=== PATIENT | male | born 1960 | race Caucasian/White ===

== ENCOUNTER 2017-02-17 14:02 | Emergency (ER) | payer BC ==
[2017-02-17] MEDS ORDERED: Azithromycin 250 MG Tab ONE (14:20)
[2017-02-17] MEDS ORDERED: Oseltamivir 75 MG Cap ONE ×2 (14:20→15:35)
--- NOTE | 2017-02-17 14:45 | EDM.PDOC ---
ED HPI GENERAL MEDICAL PROBLEM - General Chief Complaint: Respiratory Problem Stated Complaint: COUGH, CONGESTION Time Seen by Provider: 02/17/17 14:10 Source of Information: Reports: Patient History Limitations: Reports: No Limitations - History of Present Illness INITIAL COMMENTS - FREE TEXT/NARRATIVE: Pt claims that he has been having nasal congestion and fever for past 2 days. fever has been high and is asso with chills. he has been having severe body aches and joint pains. Also his cough has got worse over the past 3 days. No nausea or vomiting. No SOB or wheezing. Has been running fever. he is from [place] and has not had his flu shot this year. Duration: Day(s): (3) Severity: Moderate Improves with: Reports: None Worsens with: Reports: None Associated Symptoms: Reports: Cough, Fever/Chills. Denies: Confusion, Chest Pain, Nausea/Vomiting, Rash, Seizure, Shortness of Breath, Syncope, Weakness - Related Data Allergies Allergy/AdvReac Type Severity Reaction Status Date / Time Penicillins Allergy Cannot Verified 02/17/17 14:26 Remember Sulfa (Sulfonamide Allergy Cannot Verified 02/17/17 14:26 Antibiotics) Remember ED ROS GENERAL - Review of Systems Review Of Systems: See Below Constitutional: Reports: Fever, Chills, Weakness HEENT: Reports: Rhinitis. Denies: Throat Pain, Throat Swelling Respiratory: Reports: Cough, Sputum. Denies: Shortness of Breath, Wheezing Cardiovascular: Denies: Chest Pain, Lightheadedness GI/Abdominal: Denies: Abdominal Pain, Nausea, Vomiting Musculoskeletal: Reports: Joint Pain, Muscle Pain. Denies: Joint Swelling, Muscle Stiffness Skin: Denies: Bruising, Pruritis, Rash ED EXAM, GENERAL - Physical Exam Exam: See Below Exam Limited By: No Limitations General Appearance: Alert, WD/WN, No Apparent Distress Eye Exam: Bilateral Eye: EOMI, PERRL Ears: Normal External Exam, Normal Canal, Hearing Grossly Normal, Normal TMs Ear Exam: Bilateral Ear: Auricle Normal, Canal Normal, TM normal Nose: Normal Inspection (nasal discharge), Normal Mucosa, No Blood, Nasal Drainage Throat/Mouth: Normal Inspection, Normal Lips, Normal Teeth, Normal Gums, Normal Oropharynx, Normal Voice, No Airway Compromise Head: Atraumatic, Normocephalic Neck: Normal Inspection, Supple, Non-Tender, Full Range of Motion Respiratory/Chest: Normal Breath Sounds, Crackles (expiratory crackles in the left base) Cardiovascular: Normal Peripheral Pulses, Regular Rate, Rhythm, No Edema, No Gallop, No JVD, No Murmur, No Rub Extremities: Normal Inspection, Normal Range of Motion, Non-Tender, Normal Capillary Refill, No Pedal Edema Course - Vital Signs Text/Narrative:: Pt's white count is 4.8 with normal hemoglobin. his chest X-ray does show infiltrates in left lower lobe. His flu test is positive for influenza A This does appear like viral pneumonia. I have advised rest and hydration. fever control with Tylenol 650mg every 6 hrs. Staretd on tamiflu 75 mg BID for 5 days Will start him on ZPAK for his pneumonia empirically. Steam inhalations and deep breathing exercises. Robutussin Dm 1-2 tsp 4 times daily. Cough will gets worse before getting better. If her has high grade fever, lethargy, shortness of breath, wheezing or chest tightness, advised to return to emergency room. no work and air borne precaution discussed.Other montanez followup in clinic on Sunday. Last Recorded V/S: Last Vital Signs Temp 100.8 F H 02/17/17 14:12 Pulse 112 H 02/17/17 14:12 Resp 22 H 02/17/17 14:12 BP 141/74 H 02/17/17 14:12 Pulse Ox 100 02/17/17 14:12 - Orders/Labs/Meds Orders: Active Orders 24 hr Category Date Time Status Chest 2V [CR] Stat Exams 02/17/17 14:21 Taken Labs: Laboratory Tests 02/17/17 Range/Units 14:30 WBC 4.8 (4.0-11.0) K/uL RBC 3.82 L (4.50-6.50) M/uL Hgb 12.3 L (13.0-18.0) g/dL Hct 35.8 L (40.0-54.0) % MCV 94 (76-96) fL MCH 32.2 H (27.0-32.0) pg MCHC 34.4 (31.0-35.0) g/dL RDW 12.4 (11.0-16.0) % Plt Count 207 (150-400) K/uL MPV 9.2 (6.0-10.0) fL Neut % (Auto) 69.5 (45.0-70.0) % Lymph % (Auto) 10.2 L (20.0-40.0) % [place] % (Auto) 17.2 H (3.0-10.0) % Eos % (Auto) 2.7 (1.0-5.0) % Baso % (Auto) 0.4 (0.0-0.5) % Neut # (Auto) 3.35 (2.00-7.50) K/uL Lymph # (Auto) 0.49 L (1.50-4.00) K/uL [place] # (Auto) 0.83 H (0.20-0.80) K/uL Eos # (Auto) 0.13 (0.04-0.40) K/uL Baso # (Auto) 0.02 (0.02-0.10) K/uL Departure - Departure Time of Disposition: 15:45 Disposition: Home, Self-Care 01 Condition: Fair Clinical Impression: Influenza A, Pneumonia - Discharge Information Instructions: Cough, Adult, [id number], Viral Respiratory Infection, Easy-To- Read, Influenza Tests, Community-Acquired Pneumonia, Adult Referrals: PCP,None [Primary Care Provider] - Forms: ED Department Discharge Additional Instructions: Pt's white count is 4.8 with normal hemoglobin. his chest X-ray does show infiltrates in left lower lobe. His flu test is positive for influenza A This does appear like viral pneumonia. I have advised rest and hydration. fever control with Tylenol 650mg every 6 hrs. Staretd on tamiflu 75 mg BID for 5 days Will start him on ZPAK for his pneumonia empirically. Steam inhalations and deep breathing exercises. Robutussin Dm 1-2 tsp 4 times daily. Cough will gets worse before getting better. If her has high grade fever, lethargy, shortness of breath, wheezing or chest tightness, advised to return to emergency room. no work and air borne precaution discussed.Other montanez followup in clinic on Sunday. - Problem List & Annotations (1) Influenza A SNOMED Code(s): 906545009 Code(s): J10.1 - FLU DUE TO OTH IDENT INFLUENZA VIRUS W OTH RESP MANIFEST Status: Acute Current Visit: Yes (2) Pneumonia SNOMED Code(s): 198093473 Code(s): J18.9 - PNEUMONIA, UNSPECIFIED ORGANISM Status: Acute Current Visit: Yes Qualifiers: Pneumonia type: due to influenza A virus - Problem List Review Problem List Initiated/Reviewed/Updated: Yes - My Orders Last 24 Hours: My Active Orders 02/17/17 14:21 Chest 2V [CR] Stat - Assessment/Plan Last 24 Hours: My Active Orders 02/17/17 14:21 Chest 2V [CR] Stat Assessment:: influenza A with LLL pneumonia Plan: Pt's white count is 4.8 with normal hemoglobin. his chest X-ray does show infiltrates in left lower lobe. His flu test is positive for influenza A This does appear like viral pneumonia. I have advised rest and hydration. fever control with Tylenol 650mg every 6 hrs. Staretd on tamiflu 75 mg BID for 5 days Will start him on ZPAK for his pneumonia empirically. Steam inhalations and deep breathing exercises. Robutussin Dm 1-2 tsp 4 times daily. Cough will gets worse before getting better. If her has high grade fever, lethargy, shortness of breath, wheezing or chest tightness, advised to return to emergency room. no work and air borne precaution discussed.Other montanez followup in clinic on Sunday.
--- NOTE | 2017-02-19 02:13 | CR ---
PA AND LATERAL CHEST. 02/17/17 No priors. The heart size is normal. The lungs are clear. No pneumothorax. No pleural effusions. No areas of consolidation. IMPRESSION: No evidence of acute intrathoracic disease. [id number] MTDD
== END 2017-02-17 16:00 | disposition home or self-care (01) ==
LOC: LB.ED 14:02
DX: J18.9 Pneumonia, unspecified organism (principal); J10.1 Influenza due to other identified influenza virus with other respiratory manifestations; Z88.0 Allergy status to penicillin; Z88.2 Allergy status to sulfonamides
CPT/HCPCS: 36415; 71046; 85025; 87804; 99283; A9270

== ENCOUNTER 2017-03-03 13:38 | Emergency (ER) | payer BC ==
[2017-03-03] MEDS ORDERED: Nitroglycerin 0.4 MG Tab.SL ONE ×2 (13:40)
[2017-03-03] MEDS ORDERED: Morphine 2 MG/ML Syringe ONE ×2 (14:09→14:17)
[2017-03-03] MEDS ORDERED: Clopidogrel 75 MG Tab PO ONE (15:15)
[2017-03-03] MEDS ORDERED: Heparin Sodium 5,000 Units/ML Vial IVPUSH ONE (15:30)
[2017-03-03] MEDS ORDERED: Heparin Sodium/D5W 500 ML ONE (15:32)
--- NOTE | 2017-03-03 16:02 | ER ---
HISTORY OF PRESENT ILLNESS: A 56-year-old male who comes in with complaints of chest pain on the left side. He states he has had some chest pain for a few days. He did not think too much of it. He continued with normal activities. This morning about 4 a.m. , it became much worse. The patient is rating his pain currently at 8/10. He states that he felt very warm since this morning when the chest pain got worse. He has not been nauseated or vomiting. The patient does feel a little short of breath. He tells me that he did take 3 regular size aspirin today after the chest pain became worse. The patient denies any recent falls or injuries. PAST MEDICAL HISTORY: He initially tells us of an NC he had 5 years ago where he received 1 stent. Later on after the initial evaluation, he tells us that he actually had 2 heart attacks, 2 weeks apart. The second heart attack, he went into cardiac arrest. He was revived, and he states that he had some vessels cleaned out after that heart attack. He has been doing well since. This happened in the [facility]. The patient is not living in the [facility] other than he is here for work. He is on medication for hypertension, dyslipidemia, type 2 diabetes, and depression. He is not sure what his medications are. OBJECTIVE: GENERAL APPEARANCE: The patient is awake and alert. He is in no obvious distress. He is smiley in nature. VITAL SIGNS: Are reviewed. Initial blood pressure 140/71. He is afebrile. Pulse is 67. O2 sats 99% on room air. HEENT: Oral mucous membranes moist. NECK: Supple. LUNGS: Clear. CARDIAC: Heart sounds distinct without any obvious murmur noted. SKIN: Warm and dry. ABDOMEN: Soft and nontender. Bowel sounds are present. The patient is claiming that his chest pain radiates around the left side of his chest to the back area and he is sitting in a position that he leans on the right arm a little bit or I should say in lying down position where he is taking some pressure off the left side of his back. STUDIES: Initial workup: EKG is obtained showing what initially looks like ST elevation in the anterior or lateral leads versus a left bundle branch. We repeated the EKG with the same readings. Lab work includes a CBC and CMP, they are normal. Amylase and lipase are normal. Troponin is negative. At this point, I consulted with the tab machine operator Dr Borden in [place], Dr. Cardozo. I did send pictures of the EKGs down to him for evaluation and he confirms that this is a left bundle branch that is complete. He was able to pull up some previous EKGs which showed an incomplete left bundle branch. At this point, the patient will be transferred to [place] for further evaluation. He had been given 2 mg of morphine twice initially in the emergency room here which took away the chest pain. He had been given one nitroglycerin which caused a headache, that did resolve after about 20 minutes, and the patient has been chest pain- free. Since per tab machine operator's direction, the patient will be started on a heparin drip, a nitroglycerin drip if he can tolerate it, and Plavix 300 mg will be given. At this point, arrangements are being made for [facility]. They are expected here in about 1 hour's time. I will do the addendum after the patient has left our facility. Diagnosis; Unstable angina. CRS/MODL /[id number] MTDStephan
[2017-03-03] MEDS ORDERED: Nitroglycerin 0.4 MG Tab.SL SL PRN (18:25)
[2017-03-03] MEDS ORDERED: Nitroglycerin/D5W 25 MG/250 ML BOTTLE IV SCH (18:30)
--- NOTE | 2017-03-03 22:52 | ER ---
ADDENDUM: The patient left our facility at approximately 4:45 p.m. being transferred to [place] in [place] by [facility] fixed wing for unstable angina. He was started on heparin drip here, bolus of 4000, followed by a drip of 1000. We also started a nitroglycerin drip, and we gave him Plavix 300 mg p.o. The patient did develop a headache after about 30 minutes on the nitroglycerin drip. We stopped the nitroglycerin drip, and his headache went away. He remained free of chest pain the remainder of the stay here in [place]. WALLACE/TADEO /[id number]
--- NOTE | 2017-03-04 20:02 | CR ---
DATE OF SERVICE: 03/03/2017 CLINICAL DATA: Chest pain. AP CHEST: Comparison is made to a prior exam dated 02/17/2017. The heart and lungs are stable. No evidence of acute intrathoracic disease. [id number] [facility]
== END 2017-03-03 16:45 ==
LOC: LB.ED 13:38
DX: I20.0 Unstable angina (principal); I10 Essential (primary) hypertension; I25.2 Old myocardial infarction; E11.9 Type 2 diabetes mellitus without complications; E78.5 Hyperlipidemia, unspecified; F32.9 Major depressive disorder, single episode, unspecified; Z95.5 Presence of coronary angioplasty implant and graft; Z88.0 Allergy status to penicillin; Z88.2 Allergy status to sulfonamides
CPT/HCPCS: 36415; 71045; 80053; 82150; 83690; 84484; 85025; 93005; 99285; A0425; A0429; A9270; J1644; J2270; J7040

== ENCOUNTER 2017-03-24 16:13 | Emergency (ER) | payer BC ==
--- NOTE | 2017-03-24 16:36 | EDM.PDOC ---
ED HPI GENERAL MEDICAL PROBLEM - General Stated Complaint: ILLNESS Time Seen by Provider: 03/24/17 16:30 Source of Information: Reports: Patient History Limitations: Reports: No Limitations - History of Present Illness INITIAL COMMENTS - FREE TEXT/NARRATIVE: According to patient he claims he had prime rib in the restaurant on 03/19/17 with some garden salad. he went home and woke up at night with onset of watery loose stools. HE claims he has been having loose stools every day. About 6-7 per day. stools are semi-formed to liquid. No blood or mucus.No cramping when he uses the toilet. No nausea or vomiting. no abdominal pain or bloating.No fever or chills. HE claims he has been eating meat every day since then. he has tried some OTC pepto bismol for few day with no improvement. He claims his stools have turned dark since he has been using peptobismol. No other complaints Onset Date: 03/19/17 Severity: Moderate Improves with: Reports: None Worsens with: Reports: None Associated Symptoms: Denies: Confusion, Chest Pain, Fever/Chills, Headaches, Rash, Seizure, Shortness of Breath, Syncope, Weakness - Related Data Allergies Allergy/AdvReac Type Severity Reaction Status Date / Time Penicillins Allergy Cannot Verified 03/03/17 13:55 Remember Sulfa (Sulfonamide Allergy Cannot Verified 03/03/17 13:55 Antibiotics) Remember Home Meds: Home Meds Colesevelam [Welchol] 03/03/17 [History] ED ROS GENERAL - Review of Systems Review Of Systems: See Below Constitutional: Denies: Fever, Chills, Malaise, Weakness HEENT: Denies: Rhinitis, Sinus Problem, Throat Pain Respiratory: Denies: Shortness of Breath, Wheezing, Pleuritic Chest Pain, Cough , Sputum Cardiovascular: Denies: Chest Pain, Lightheadedness Endocrine: Denies: Fatigue GI/Abdominal: Reports: Diarrhea. Denies: Abdominal Pain, Bloody Stool, Decreased Appetite, Distension, Hematochezia, Melena, Nausea, Vomiting : Denies: Flank Pain, Frequency, Urgency Musculoskeletal: Denies: Joint Pain, Joint Swelling Skin: Denies: Pruritis, Rash ED EXAM, GENERAL - Physical Exam Exam: See Below Exam Limited By: No Limitations General Appearance: Alert, WD/WN, No Apparent Distress Eye Exam: Bilateral Eye: EOMI, PERRL Ears: Normal External Exam, Normal Canal, Hearing Grossly Normal, Normal TMs Ear Exam: Bilateral Ear: Auricle Normal, Canal Normal, TM normal Nose: Normal Inspection, Normal Mucosa, No Blood Throat/Mouth: Normal Inspection, Normal Lips, Normal Teeth, Normal Gums, Normal Oropharynx, Normal Voice, No Airway Compromise, Other (tongue is coated black from peptobismol) Head: Atraumatic, Normocephalic Neck: Normal Inspection, Supple, Non-Tender, Full Range of Motion Respiratory/Chest: No Respiratory Distress, Lungs Clear, Normal Breath Sounds, No Accessory Muscle Use, Chest Non-Tender Cardiovascular: Normal Peripheral Pulses, Regular Rate, Rhythm, No Edema, No Gallop, No JVD, No Murmur, No Rub Peripheral Pulses: 2+: Brachial (L), Brachial (R) GI/Abdominal: Normal Bowel Sounds, Soft, Non-Tender, No Organomegaly, No Distention, No Abnormal Bruit, No Mass Extremities: Normal Inspection, Normal Range of Motion, Non-Tender, Normal Capillary Refill, No Pedal Edema Neurological: Alert, Oriented, CN II-XII Intact, Normal Cognition, Normal Gait, Normal Reflexes, No Motor/Sensory Deficits Skin Exam: Warm, Intact Course - Vital Signs Text/Narrative:: Pt's vitals are stable. He appears well hydrated. His clinical exam is normal. It does appear like he has viral GE or mild food poisoning with normal hydration. His CBC and CMp are reassuring. His creat is stable. Pt reassured that the probable cause of his diarrhea not resolving is his diet. I have advised patient to stay of bland diet and avoid meat until diarrhea resoles. Advised apples and bananas to help form the stool. Also as his symptoms have been going on for 5-6 days now, will send stool culture and giardia antigen testing. Advised oral hydration and bland diet for now. he does not need Iv hydration or further workupa s he is not appearing toxic or acutely ill. - Orders/Labs/Meds Orders: Active Orders 24 hr Category Date Time Status COMPREHENSIVE METABOLIC PN,CMP [CHEM] Stat Lab 03/24/17 16:59 Ordered CULTURE-STOOL [MREF] Stat Lab 03/24/17 17:00 Ordered GIARDIA LAMBLIA ANTIGEN Routine Lab 03/24/17 17:00 Ordered Labs: Laboratory Tests 03/24/17 Range/Units 17:15 WBC 4.8 D (4.0-11.0) K/uL RBC 3.79 L (4.50-6.50) M/uL Hgb 12.0 L (13.0-18.0) g/dL Hct 34.9 L (40.0-54.0) % MCV 92 (76-96) fL MCH 31.7 (27.0-32.0) pg MCHC 34.4 (31.0-35.0) g/dL RDW 12.9 (11.0-16.0) % Plt Count 245 (150-400) K/uL MPV 8.9 (6.0-10.0) fL Neut % (Auto) 54.8 (45.0-70.0) % Lymph % (Auto) 24.1 (20.0-40.0) % [place] % (Auto) 13.8 H (3.0-10.0) % Eos % (Auto) 6.9 H (1.0-5.0) % Baso % (Auto) 0.4 (0.0-0.5) % Neut # (Auto) 2.62 (2.00-7.50) K/uL Lymph # (Auto) 1.15 L (1.50-4.00) K/uL [place] # (Auto) 0.66 (0.20-0.80) K/uL Eos # (Auto) 0.33 (0.04-0.40) K/uL Baso # (Auto) 0.02 (0.02-0.10) K/uL Departure - Departure Time of Disposition: 18:00 Disposition: Home, Self-Care 01 Condition: Fair Clinical Impression: Gastroenteritis - Discharge Information Referrals: PCP,None [Primary Care Provider] - Additional Instructions: CBC CMP stable. Normal hydration.Normal clinical exam. Gastroenteritis with normal hydration [place] diet and avoid meat products until stool are well formed. Apples and bananas daily Will send stool culture and giardia testing and followup with results. followup in clinic if symptoms worsen. - Problem List & Annotations (1) Gastroenteritis SNOMED Code(s): 68803181 Code(s): K52.9 - NONINFECTIVE GASTROENTERITIS AND COLITIS, UNSPECIFIED Status: Acute Current Visit: Yes - Problem List Review Problem List Initiated/Reviewed/Updated: Yes - My Orders Last 24 Hours: My Active Orders 03/24/17 16:59 COMPREHENSIVE METABOLIC PN,CMP [CHEM] Stat 03/24/17 17:00 CULTURE-STOOL [MREF] Stat GIARDIA LAMBLIA ANTIGEN Routine - Assessment/Plan Last 24 Hours: My Active Orders 03/24/17 16:59 COMPREHENSIVE METABOLIC PN,CMP [CHEM] Stat 03/24/17 17:00 CULTURE-STOOL [MREF] Stat GIARDIA LAMBLIA ANTIGEN Routine Assessment:: Gastroenteritis with normal hydration Plan: t's vitals are stable. He appears well hydrated. His clinical exam is normal. It does appear like he has viral GE or mild food poisoning with normal hydration. His CBC and CMp are reassuring. His creat is stable. Pt reassured that the probable cause of his diarrhea not resolving is his diet. I have advised patient to stay of bland diet and avoid meat until diarrhea resoles. Advised apples and bananas to help form the stool. Also as his symptoms have been going on for 5-6 days now, will send stool culture and giardia antigen testing. Advised oral hydration and bland diet for now. he does not need Iv hydration or further workup as he is not appearing toxic or acutely ill.
== END 2017-03-24 18:05 | disposition home or self-care (01) ==
LOC: LB.ED 16:13
DX: K52.9 Noninfective gastroenteritis and colitis, unspecified (principal); Z88.0 Allergy status to penicillin; Z88.2 Allergy status to sulfonamides
CPT/HCPCS: 36415; 80053; 85025; 87015; 87045; 87046; 87329; 87899; 99284